=== PATIENT | male | born 1965 | race Caucasian/White ===

== ENCOUNTER 2020-12-21 18:42 | Emergency (ER) | payer OTHER, MEDICARE ==
[~2020-12-21] VITALS: Ht 177.8 cm; Wt 103.0 kg
[~2020-12-21 18:42] MED LIST: BUPRENORPHINE HC8 MG SL; CLONAZEPAM2 MG PO; CLONIDINE HCL0.1 MG PO; DILAUDID4 MG PO; IBUPROFEN800 MG PO; LIDODERM700 MG TOP; METHADONE HCL10 MG PO; METHADOSE10 MG PO; NORCO 5-325 TA1 EACH PO; OXYCODONE HCL5 MG PO; PERCOCET 5-3251 EACH PO; SUBOXONE 8 MG-1 EAC1 SL; TYLENOL325 MG PO
--- OUTSIDE RECORDS SUMMARY | 2020-12-21 18:46 | XMS ---
PreManage Notification: LAUREN ODELL Security Manager Photography Events No recent Security Events currently on file CRITERIA MET - PDMP - Group Notification CARE PROVIDERS There are no care providers on record at this time. Care Guidelines exist for the following facilities: [facility] ( 05/26/2020 ) [place] VISIT COUNT (12 MO.) [address] Anthony Cameron TOTAL 2 NOTE: Visits indicate total known visits. ED/UCC VISIT TRACKING (12 MO.) 12/21/2020 18:43 [facility] [place] TYPE: Emergency COMPLAINT: - RT SHOULDER INJURY 07/24/2020 11:09 [facility] OR TYPE: Emergency DIAGNOSES: - Unspecified injury of face, initial encounter - Other specified disorders of teeth and supporting structures - DENTAL INFECTION INPATIENT VISIT TRACKING (12 MO.) No inpatient visits to display in this time frame [email or web address]
[2020-12-21] MEDS ORDERED: PROPRANOLOL HCL40 MG PO (19:29)
[2020-12-21] MEDS ORDERED: BUPROPION XL300 MG PO (19:30)
[2020-12-21] MEDS ORDERED: HYDROCODON-ACE1 EA10 PO (21:05)
== END 2020-12-21 21:37 | disposition home or self-care (01) ==
LOC: ED 18:42
DX: S46.911A Strain of unspecified muscle, fascia and tendon at shoulder and upper arm level, right arm, initial encounter (principal); W01.10XA Fall on same level from slipping, tripping and stumbling with subsequent striking against unspecified object, initial encounter; Z88.8 Allergy status to other drugs, medicaments and biological substances; Z88.5 Allergy status to narcotic agent; Z79.899 Other long term (current) drug therapy
CPT/HCPCS: 73030; 99283-25

== ENCOUNTER 2021-10-06 17:59 | Emergency (ER) | payer MEDICARE ==
[~2021-10-06] VITALS: Ht 180.3 cm; Wt 101.6 kg
[~2021-10-06 17:59] MED LIST changes: +BUPROPION XL300 MG PO; +HYDROCODON-ACE1 EA10 PO; +PROPRANOLOL HCL40 MG PO
--- OUTSIDE RECORDS SUMMARY | 2021-10-06 18:02 | XMS ---
PreManage Notification: LAUREN ODELL Security Performance Makeup Artist Events No recent Security Events currently on file CRITERIA MET - PDMP - Group Notification CARE PROVIDERS [facility] Physician 12/22/2020-Current PHONE: [phone] Care Guidelines exist for the following facilities: [facility] ( 05/26/2020 ) [place] VISIT COUNT (12 MO.) 2 [facility] TOTAL 2 NOTE: Visits indicate total known visits. ED/UCC VISIT TRACKING (12 MO.) 10/06/2021 18:00 [facility] TYPE: Emergency COMPLAINT: - FLU SYMPTOMS 12/21/2020 18:43 [facility] [place] TYPE: Emergency COMPLAINT: - RT SHOULDER INJURY DIAGNOSES: - Strain of unspecified muscle, fascia and tendon at shoulder and upper arm level, right arm, initial encounter - Allergy status to narcotic agent - Nausea with vomiting, unspecified - Other fci (current) drug therapy - Allergy status to other drugs, medicaments and biological substances - Fall on same level from slipping, tripping and stumbling with subsequent striking against unspecified object, initial encounter INPATIENT VISIT TRACKING (12 MO.) No inpatient visits to display in this time frame [email or web address]
== END 2021-10-06 19:30 | disposition home or self-care (01) ==
LOC: ED 17:59
DX: B34.9 Viral infection, unspecified (principal); Z20.822 Contact with and (suspected) exposure to COVID-19; F43.10 Post-traumatic stress disorder, unspecified; Z88.8 Allergy status to other drugs, medicaments and biological substances; Z88.5 Allergy status to narcotic agent; Z79.899 Other long term (current) drug therapy
CPT/HCPCS: 87502; 99283; C9803; U0003